=== PATIENT | male | born 1970 | race African-American/Black ===

== ENCOUNTER 2022-01-01 22:37 | Observation (INO) ==
--- NOTE | 2022-01-01 22:58 | Emergency Department Note ---
Impression & Plan Stroke-like episode ADMIT ED Provider Note HPI: The patient is a 51-year-old male who presents from [facility] with chief complaint of left upper extremity weakness and numbness. Patient states this began 3 hours prior to arrival. On arrival here to the ED the patient complains of some left upper extremity and left lower extremity weakness, also complains of numbness and tingling in his left upper extremity. Facial movements are symmetrical, he otherwise does not have any focal deficits. Patient denies any chest pain or shortness of breath, denies any visual changes, denies any headache. Patient is alert and oriented on arrival. ROS: -Neuro: Left-sided weakness, paresthesias of the left upper extremity *10 point review systems was conducted and is otherwise negative unless stated above *Outpatient medications and allergy history reviewed PE: General: Alert, NAD HEENT: Normocephalic, atraumatic Eyes: Extraocular eye movement is intact, no scleral erythema Pulmonary: Clear to auscultation bilaterally, no wheezing Cardio: Regular rate and rhythm GI: Abdomen is soft, nontender : No suprapubic tenderness MSK: No evidence of trauma or malformation of the extremities, no edema Skin: No evidence of rash Neuro: Alert, no focal deficits, there is mild drift of the left upper and left lower extremity with testing against gravity, symmetrical facial movements are appreciated, there is no drift of the right upper extremity or right lower extremity with testing against gravity Psychiatric: Cooperative traffic monitor specialist: - An order was placed for continuous cardiac monitoring - Patient was noted to be in sinus rhythm with rate of 62 CT HEAD: No acute infarct, bleed, or acute intracranial abnormality. Mild cortical atrophy. Radiologist: Alyssia Lowry M.D. Study ready at 23:12 and initial results transmitted at 23:17 Communications: Clear Time TypeH Notes 01/01/22 23:25 Call Doctor Regarding Str eve, called Dr Rivera on 01/01 23:25 (-04:00) Preliminary Findings Only See Final Report For Complete Findings CTA HEAD: No aneurysm or large vessel occlusion. Results discussed with Dr. Rivera. Radiologist: Alyssia Lowry M.D. Study ready at 23:16 and initial results transmitted at 23:27 Communications: Clear Time Type Notes 01/01/22 23:28 Call Doctor Regarding Str eve, called Dr. Rivera on 01/01 23:28 (- 04:00) CTA NECK: Mild atherosclerosis and ectasia bilateral ICA. Codominant vertebral arteries. No dissection, significant stenosis, or vessel occlusion. Results discussed with Dr. Rivera. Radiologist: Alyssia Lowry M.D. Study ready at 23:17 and initial results transmitted at 23:28 Communications: Clear Time Type Notes 01/01/22 23:31 Call Doctor Regarding Str eve, called Dr. Rivera on 01/01 23:32 (- 04:00) NIH STROKE SCALE: 1A: Level of consciousness Alert; keenly responsive 0 1B: Ask month and age Both questions right 0 1C: 'Blink eyes' & 'squeeze hands' Performs both tasks 0 2: Horizontal extraocular movements Normal 0 3: Visual conley No visual loss 0 4: Facial palsy Normal symmetry 0 5A: Left arm motor drift +1 5B: Right arm motor drift No drift for 10 seconds 0 6A: Left leg motor drift +1 6B: Right leg motor drift No drift for 5 seconds 0 7: Limb Ataxia No ataxia 0 8: Sensation Normal; no sensory loss 1 9: Language/aphasia Normal; no aphasia 0 10: Dysarthria Normal 0 11: Extinction/inattention No abnormality 0 TOTAL NIH SCORE = 2 EKG: Rate: 62 Rhythm: Sinus rhythm Intervals: OR interval prolonged at 220 ms, otherwise within normal limits ST changes: No ST elevation Time: 2248 Medical Decision Making: Patient presented to the emergency department with left-sided weakness and paresthesias in the left upper extremity, he arrives approximately 3 hours after the onset of his symptoms therefore stroke alert was called following my evaluation of the patient in the room. I did contact the on-call stroke neurologist at [facility], Dr. Merchant, also evaluate the patient via tele- stroke consult. Patient does have an NIH score of 3 for left upper extremity and left lower extremity drift as well as abnormal sensory deficit in the left upper extremities with paresthesias and numbness/tingling. CT imaging of the head without contrast is unremarkable, CT angiography of the head and neck does not show any evidence of large vessel occlusion or aneurysm. Following my discussion with Dr. Merchant after his telestroke consult, patient was determined to be a candidate for TNK. At this point the patient is still within a 4.5-hour window, I did discuss the possibility of administering TN K with the patient, he tells me he is starting to feel some improvement in his left-sided weakness and he is not comfortable with a 5 to 7% risk of intracranial hemorrhage with the me dicine, therefore he does not want the medicine to be administered. I think this is reasonable given that his symptoms are improving. Patient was given aspirin in the ED, his lab work is otherwise unremarkable, he denies any chest pain or shortness of breath, patient will be admitted to the hospitalist service for further management and MRI of the brain. Case was discussed with Dr. Olmedo of [facility] for admission. * CRITICAL CARE TIME: 35 min -Stroke alert activation for patient with focal deficits inside the window for thrombolysis, discussion with other healthcare providers/specialty physicians/stroke neurology, interpretation of diagnostic studies, time spent at the bedside and arrangement of admission Diagnosis: 1. Strokelike episode 2. Left-sided weakness 3. Left-sided paresthesias 4. History of hypertension 5. History of hyperlipidemia Disposition: Admission Clive Rivera DO Emergency Medicine Past Med/Surg History Social History Smoking Status: Never smoker Feels Safe at Home: Yes Allergies Allergies Allergy/AdvReac Type Severity Reaction Status Date / Time No Known Allergies Allergy Unverified 01/01/22 23:52 Home Meds Home Medications Medication Instructions Recorded Confirmed amlodipine 10 mg tablet 10 mg PO DAILY 01/01/22 01/01/22 aspirin 81 mg tablet,delayed 81 mg PO DAILY 01/01/22 01/01/22 release atorvastatin 20 mg tablet 20 mg PO HS 01/01/22 01/01/22 hydrochlorothiazide 25 mg tablet 25 mg PO DAILY 01/01/22 01/01/22 Results & Data (ED) Vital Signs Vital Signs - 24 hr 01/01/22 22:40 01/01/22 22:46 01/01/22 23:10 Pulse Rate 65 Pulse Rate [Finger] 63 Respiratory Rate 18 18 Respiratory Effort / Characteristics Non-Labored Spontaneous Respiratory Depth Normal Respiratory Pattern Regular Blood Pressure 140/91 Blood Pressure [Right Arm] 152/87 H Blood Pressure Mean 107 Blood Pressure Mean [Right Arm] 108 Blood Pressure Position Sitting Pulse Oximetry 98 98 100 Oxygen Delivery Method Room Air Room Air Room Air Sepsis Recent Fever Within 48 Hours No Sepsis New/Unexplained Change in Mental Status N/A Sepsis Action Taken by Nursing No Action Required 01/01/22 23:30 01/01/22 23:45 01/02/22 00:00 Pulse Rate Pulse Rate [Finger] 67 67 72 Respiratory Rate 20 20 18 Respiratory Effort / Characteristics Respiratory Depth Respiratory Pattern Blood Pressure Blood Pressure [Right Arm] 130/84 139/86 157/100 H Blood Pressure Mean Blood Pressure Mean [Right Arm] 99 103 119 Blood Pressure Position Pulse Oximetry 100 99 99 Oxygen Delivery Method Room Air Room Air Room Air Sepsis Recent Fever Within 48 Hours Sepsis New/Unexplained Change in Mental Status Sepsis Action Taken by Nursing 01/02/22 00:15 Pulse Rate Pulse Rate [Finger] 67 Respiratory Rate 16 Respiratory Effort / Characteristics Respiratory Depth Respiratory Pattern Blood Pressure Blood Pressure [Right Arm] 155/100 H Blood Pressure Mean Blood Pressure Mean [Right Arm] 118 Blood Pressure Position Pulse Oximetry 99 Oxygen Delivery Method Room Air Sepsis Recent Fever Within 48 Hours Sepsis New/Unexplained Change in Mental Status Sepsis Action Taken by Nursing Laboratory Data Result diagrams: 01/01/22 22:44 01/01/22 22:44 Lab Results 01/01/22 01/01/22 01/01/22 Range/Units 22:43 22:44 22:44 WBC 7.64 (4.8-10.8) K/uL RBC 4.57 L (4.7-6.1) M/uL Hgb 14.5 (14.0-18.0) g/dL Hct 41.8 L (42-52) % MCV 91.5 (80-100) fL MCH 31.7 (25-34) pg MCHC 34.7 (32-36) g/dL RDW Std Deviation 43.5 (36.4-46.3) fL RDW Coeff of [place] 13.0 (11.5-14.5) % Plt Count 252 (130-400) K/uL MPV 10.7 H (7.4-10.4) fL Immature Gran % (Auto) 0.3 % Neut % (Auto) 47.6 % Lymph % (Auto) 39.5 % [place] % (Auto) 11.0 % Eos % (Auto) 1.3 % Baso % (Auto) 0.3 % Neut # (Auto) 3.64 (1.4-6.5) K/uL Lymph # (Auto) 3.02 (1.2-3.4) K/uL [place] # (Auto) 0.84 H (0.11-0.59) K/uL Eos # (Auto) 0.10 (0-0.5) K/uL Baso # (Auto) 0.02 (0-0.2) K/uL Immature Gran # (Auto) 0.02 (0.00-0.02) K/uL PT 10.7 (9.0-12.0) Seconds INR 1.0 (0.9-1.1) APTT 26.6 (21.0-31.0) Seconds PTT Ratio 1.0 Sodium (136-145) mmol/L Potassium Chloride (98-107) mmol/L Carbon Dioxide (21-32) mmol/L Anion Gap (3-11) BUN (6-23) mg/dl Creatinine (0.6-1.4) mg/dl Est Cr Clr Drug Dosing ml/min Est GFR ( Amer) ml/min Est GFR (Non-Af Amer) ml/min BUN/Creatinine Ratio (10-20) Glucose (70-99(Fasting)) mg/dl POC Glucose 110 H (70-99) mg/dl Calcium (8.5-10.1) mg/dl Magnesium (1.7-2.4) mg/dl Total Bilirubin (0.2-1.0) mg/dl AST ALT (7-52) U/L Alkaline Phosphatase (34-104) U/L Troponin I High Sens Total Protein (6.0-8.3) gm/dl Albumin (3.4-5.0) gm/dl Globulin (2.5-4.0) gm/dl Albumin/Globulin Ratio (0.9-2) SARS-CoV-2, RNA, NAAT (NEGATIVE) 01/01/22 01/01/22 01/01/22 Range/Units 22:44 22:47 23:55 WBC (4.8-10.8) K/uL RBC (4.7-6.1) M/uL Hgb (14.0-18.0) g/dL Hct (42-52) % MCV (80-100) fL MCH (25-34) pg MCHC (32-36) g/dL RDW Std Deviation (36.4-46.3) fL RDW Coeff of [place] (11.5-14.5) % Plt Count (130-400) K/uL MPV (7.4-10.4) fL Immature Gran % (Auto) % Neut % (Auto) % Lymph % (Auto) % [place] % (Auto) % Eos % (Auto) % Baso % (Auto) % Neut # (Auto) (1.4-6.5) K/uL Lymph # (Auto) (1.2-3.4) K/uL [place] # (Auto) (0.11-0.59) K/uL Eos # (Auto) (0-0.5) K/uL Baso # (Auto) (0-0.2) K/uL Immature Gran # (Auto) (0.00-0.02) K/uL PT (9.0-12.0) Seconds INR (0.9-1.1) APTT (21.0-31.0) Seconds PTT Ratio Sodium 139 (136-145) mmol/L Potassium TNP Chloride 103 (98-107) mmol/L Carbon Dioxide 28 (21-32) mmol/L Anion Gap 8 (3-11) BUN 13 (6-23) mg/dl Creatinine 1.52 H (0.6-1.4) mg/dl Est Cr Clr Drug Dosing 74.1 ml/min Est GFR ( Amer) 60.2 ml/min Est GFR (Non-Af Amer) 51.9 ml/min BUN/Creatinine Ratio 8.6 L (10-20) Glucose 94 (70-99(Fasting)) mg/dl POC Glucose (70-99) mg/dl Calcium 9.2 (8.5-10.1) mg/dl Magnesium 2.0 (1.7-2.4) mg/dl Total Bilirubin 0.4 (0.2-1.0) mg/dl AST TNP ALT 27 (7-52) U/L Alkaline Phosphatase 65 (34-104) U/L Troponin I High Sens Cancelled 5.0 Total Protein 7.3 (6.0-8.3) gm/dl Albumin 4.5 (3.4-5.0) gm/dl Globulin 2.8 (2.5-4.0) gm/dl Albumin/Globulin Ratio 1.6 (0.9-2) SARS-CoV-2, RNA, NAAT NEGATIVE (NEGATIVE) Administered Medications Discontinued Medications Aspirin (Aspirin Chew 324 Mg) 324 mg PO NOW STA Stop: 01/01/22 23:54 Last Admin: 01/01/22 23:58 Dose: 324 mg Documented by: [id number] Tenecteplase 25 mg/ Syringe 5 mls @ 60 mls/min IV NOW ONE; Protocol Stop: 01/01/22 23:47 Last Admin: 01/01/22 23:48 Dose: Not Given Documented by: [id number] Ioversol (Optiray 320 125ml) 117 ml IV ONCE ONE Stop: 01/01/22 23:12 Last Admin: 01/01/22 23:12 Dose: 117 ml Documented by: [id number] Miscellaneous (Stat Iv) 1 ea N/A NOW STA Stop: 01/01/22 23:37 Last Admin: 01/01/22 23:49 Dose: Not Given Documented by: [id number] Sodium Chloride (Sodium Chloride 0.9% 10ml Flush) 20 ml IV NOW STA Stop: 01/01/22 23:37 Last Admin: 01/01/22 23:49 Dose: Not Given Documented by: [id number] Discharge Plan Visit Data Chief Complaint: Stroke/CVA Symptoms Stated Complaint: Back Pain, Stroke Symptoms ED Provider: Clive Rivera Discharge Problem: Stroke-like episode Forms Stand Alone Forms: My [facility] Prescriptions Prescriptions: No Action atorvastatin 20 mg Tablet 20 mg PO HS RF: 0 aspirin [Aspir-Low] 81 mg Tablet,Delayed Release (Dr/Ec) 81 mg PO DAILY RF: 0 amlodipine 10 mg Tablet 10 mg PO DAILY RF: 0 hydrochlorothiazide 25 mg Tablet 25 mg PO DAILY RF: 0 Referrals Referrals: PCP,NO [Physician] -
[2022-01-01] MEDS ORDERED: OPTIRAY 320 125ml IV ONE (23:11)
[2022-01-01 23:27] LABS: Basophils # (auto) 0.02 K/uL (0-0.2); Basophils % (auto) 0.3 %; Eosinophils % (auto) 1.3 %; Hematocrit (blood only) 41.8 % (42-52); Hemoglobin 14.5 g/dL (14.0-18.0); Immature Granulocytes # (auto) 0.02 K/uL (0.00-0.02); Immature Granulocytes % (auto) 0.3 %; Lymphocytes # (auto) 3.02 K/uL (1.2-3.4); Lymphocytes % (auto) 39.5 %; Mean Corpuscular Hemoglobin 31.7 pg (25-34); Mean Corpuscular Hgb Conc 34.7 g/dL (32-36); Mean Corpuscular Volume 91.5 fL (80-100); Mean Platelet Volume 10.7 fL (7.4-10.4); Monocytes # (auto) 0.84 K/uL (0.11-0.59); Neutrophils # (auto) 3.64 K/uL (1.4-6.5); Neutrophils % (auto) 47.6 %; Platelet Count 252 K/uL (130-400); RDW Standard Deviation 43.5 fL (36.4-46.3); Red Blood Count 4.57 M/uL (4.7-6.1); White Blood Count 7.64 K/uL (4.8-10.8)
[2022-01-01 23:33] LABS: Partial Thromboplastin Time 26.6 Seconds (21.0-31.0); Prothrombin Time 10.7 Seconds (9.0-12.0)
[2022-01-01] MEDS ORDERED: STAT IV STA (23:36)
[2022-01-01] MEDS ORDERED: SODIUM CHLORIDE 0.9% 10ML FLUSH IV STA (23:36)
[2022-01-01] MEDS ORDERED: No Aspirin within 24hrs of THROMBOLYTIC-Stroke PO SCH (23:45)
[2022-01-01] MEDS ORDERED: TENECTEPLASE 25 MG in SYRINGE 0 ML IV ONE (23:46)
[2022-01-01] MEDS ORDERED: ASPIRIN CHEW 324 MG PO STA (23:53)
[2022-01-02 00:13] LABS: Alanine Aminotransferase 27 U/L (7-52); Albumin Globulin Ratio 1.6 (0.9-2); Albumin Level 4.5 gm/dl (3.4-5.0); Alkaline Phosphatase 65 U/L (34-104); Anion Gap 8 (3-11); BUN Creatinine Ratio 8.6 (10-20); Bilirubin,Total 0.4 mg/dl (0.2-1.0); Blood Urea Nitrogen 13 mg/dl (6-23); Calcium 9.2 mg/dl (8.5-10.1); Carbon Dioxide 28 mmol/L (21-32); Chloride 103 mmol/L (98-107); Creatinine Clr Calc Pharmacy 74.1 ml/min; Est GFR (African American) 60.2 ml/min; Est GFR (Non-African American) 51.9 ml/min; Globulin 2.8 gm/dl (2.5-4.0); Glucose 94 mg/dl (70-99(Fasting)); Sodium 139 mmol/L (136-145); Total Protein 7.3 gm/dl (6.0-8.3)
[2022-01-02] MEDS ORDERED: CLOPIDOGREL BISULFATE 75 MG TAB PO STA (00:41)
--- NOTE | 2022-01-02 00:42 | History & Physical Report ---
Date of Service January 02, 2022 Assessment & Plan (1) CVA (cerebral vascular accident): Plan: 51 y/o M Hx HTN, HLD, CKD III. He developed symptoms of L weakness and numbness, primarily in his L arm and less so in his L leg, 2-3 hours prior to arrival in the ER. He was evaluated by the telestroke service and TPA was advised. However, the pt has declined based on bleeding risk. Initial imaging including CTA head, neck and CT head did not demonstrate any acute abnor malities. Labs were unremarkable. 1) CVA - monitor on telemetry with neuro checks. He takes ASA and 20mg atorvastatin. He is provided with Plavix and 80mg statin. MRI and neurology consult pending. 2) HTN - HCTZ and amlodipine held in setting of acute CVA. 3) HLD - high-intensity statin dosing 4) CKD - renal function at baseline Full code Lovenox prophylaxis Total time for this admit including review of labs, meds, imaging, records - 38 min (2) HTN (hypertension): (3) HLD (hyperlipidemia): History of Present Illness Chief Complaint: L weakness/numbness Primary Care Provider: MARY Shi 51 y/o M Hx HTN, HLD, CKD III. He developed symptoms of L weakness and numbness, primarily in his L arm and less so in his L leg, 2-3 hours prior to arrival in the ER. He was evaluated by the telestroke service and TPA was advised. However, the pt has declined based on bleeding risk. Initial imaging including CTA head, neck and CT head did not demonstrate any acute abnormalities. Labs were unremarkable. PMH: 1) HTN 2) HLD 3) CKD III Surgical: L5, S1 surgery Social: Resident of a local [facility]. Does not drink or smoke. Formerly a construction foreman. Family: Mother - gastric CA Father - MVA Allergies Allergy/AdvReac Type Severity Reaction Status Date / Time No Known Allergies Allergy Unverified 01/01/22 23:52 Home Medications Medication Instructions Recorded Confirmed Type amlodipine 10 mg tablet 10 mg PO DAILY 01/01/22 01/01/22 History aspirin 81 mg tablet,delayed 81 mg PO DAILY 01/01/22 01/01/22 History release atorvastatin 20 mg tablet 20 mg PO HS 07/01/22 07/01/22 History hydrochlorothiazide 25 mg tablet 25 mg PO DAILY 01/01/22 01/01/22 History Past Med/Surg History Social History Smoking Status: Never smoker Feels Safe at Home: Yes Review of Systems Review of Systems: Gen: Denies fevers, night sweats, rigors, fatigue, malaise, weight loss/gain ENT: Denies congestion, throat pain, hearing loss Eyes: Denies acute visual changes CV: Denies CP, palpitations Pulmonary: Denies SOB, cough, wheezing GI: Denies N/V, diarrhea, constipation Neuro: Acute L extremity weakness Musculoskeletal: Denies joint pain, inflammation Endocrine: Denies polydipsia, polyuria Skin: Denies acute rashes or ulcers Physical Exam Physical Exam: General: Pleasant, middle-aged M, AAO x 3, no distress ENT: No erythema or exudates, no thrush Eyes: VENKATA, EOMI Head and neck: Normocephalic, atraumatic, No JVD, neck is supple. Chest/heart: Nontender, S1,2, RRR, no murmurs, no gallops Lungs: CTAB, no wheezing or crackles Abdomen: Nontender, nondistended, BS+ Neuro: AAO x 3, speech is clear, no facial asymmetry, L upper extremity drift and distal numbness present. LLE displays lesser degree of weakness. Musculoskeletal: No joint inflammation, muscle tenderness, FROM Skin: No acute rashes or ulcers Extremities: No clubbing, cyanosis, edema Results & Data Results & Data ([facility]) Vital Signs (Past 12 Hours) Vital Signs Pulse Pulse Resp BP BP Pulse Ox 01/02/22 00:30 62 16 135/91 98 01/02/22 00:15 67 16 155/100 H 99 01/02/22 00:00 72 18 157/100 H 99 01/01/22 23:45 67 20 139/86 99 01/01/22 23:30 67 20 130/84 100 01/01/22 23:10 63 18 152/87 H 100 01/01/22 22:46 98 01/01/22 22:40 65 18 140/91 98 Code Status & VTE Plan VTE Prophylaxis Plan VTE Prophylaxis will be ordered: Yes PG Care Time/CCT Total # of Minutes Spent Total Time Spent with Patient: Total time spent is greater than 50% in coordination of care (as documented) at patient's floor/unit and/or counseling patient: Coding Level of Care Code 74566 Initial Inpt Care Lvl 3 Diagnoses CVA (cerebral vascular accident) I63.9 HTN (hypertension) I10 HLD (hyperlipidemia) E78.5
[2022-01-02] MEDS ORDERED: ACETAMINOPHEN 325 MG TAB PO PRN (01:26)
[2022-01-02] MEDS ORDERED: D5W AND NSS 1,000 ML IV SCH (01:26)
[2022-01-02 03:26] LABS: Potassium 3.6 mmol/L (3.5-5.1)
[2022-01-02] MEDS: ENOXAPARIN INJ 40 MG/0.4 ML SYR SQ SCH (07:58)
[2022-01-02] MEDS: ASPIRIN 81 MG ECTAB PO SCH (07:58)
[2022-01-02] MEDS: CLOPIDOGREL BISULFATE 75 MG TAB PO SCH (07:58)
--- NOTE | 2022-01-02 08:06 | Hospitalist Progress Note ---
Date of Service January 02, 2022 Assessment & Plan (1) CVA (cerebral vascular accident): Plan: 51 y/o M Hx HTN, HLD, CKD III. He developed symptoms of L weakness and numbness, primarily in his L arm and less so in his L leg, 2-3 hours prior to arrival in the ER. He was evaluated by the telestroke service and TPA was advised. However, the pt has declined based on bleeding risk. Initial imaging including CTA head, neck and CT head did not demonstrate any acute abnor malities. Labs were unremarkable. MRI is completely normal brain such as MRI has ruled out CVA - He is provided with Plavix and 80mg statin. Considerations would likely be atypical migraine as he does have some visual changes associated with it patient is started on Topamax in the evening of 01/02 choosing not to use beta-blockers as he has a low resting heart rate to begin with may consider venlafaxine HTN - HCTZ and amlodipine held in setting of lower blood pressures. HLD - high-intensity statin dosing CKD - renal function at baseline Full code Lovenox prophylaxis PT OT eval #speech bedside swallowing eval (2) HTN (hypertension): (3) HLD (hyperlipidemia): Admission and Anticipated Discharge Date Admission Date: January 02, 2022 Subjective pt states he feels that his symptoms are resolving Review of Systems Review of Systems: Mild distress and fatigue no headache, no visual changes no speech or swallowing issues no chest pain, pressure or palpitations no shortness of breath, cough or wheezes no abdominal pain, nausea or vomiting, diarrhea or constipation no dysuria, hematuria or frequency no focal joint pain or swelling no back pain, CVA tenderness or radicular pain no bruising, bleeding or rashes Patient says his left-sided paresthesias are resolving or improving he has no objective signs of weakness no complaints of anxiety or depression.. Physical Exam Physical Exam: The patient appeared well nourished and normally developed. Vital signs as documented. Head exam is normocephalic atraumatic Neck is without JVD, thyromegaly, or carotid bruits. Lungs are clear to auscultation, no focal loss of breath sounds Cardiac exam, Rhythm is regular.. No murmurs, rubs or gallops. Abdominal exam reveals normal bowel sounds, soft non tender, no masses Extremities are nonedematous and both pedal pulses are present Neurologic exam is alert and oriented, no focal loss of strength or sensation Skin is without bruises or rashes Psychologically is without concerns for anxiety or depression.. Results & Data Results & Data ([facility]) Vital Signs (Past 12 Hours) Vital Signs Temp Pulse Pulse Resp BP BP BP 01/02/22 07:22 97.3 F L 54 L 19 132/83 01/02/22 03:06 98.1 F 55 L 18 131/83 01/02/22 01:19 98.2 F 63 18 155/91 H 01/02/22 00:45 72 18 138/90 01/02/22 00:30 62 16 135/91 01/02/22 00:15 67 16 155/100 H 01/02/22 00:00 72 18 157/100 H 01/01/22 23:45 67 20 139/86 01/01/22 23:30 67 20 130/84 01/01/22 23:10 63 18 152/87 H 01/01/22 22:46 01/01/22 22:40 65 18 140/91 Pulse Ox 01/02/22 07:22 96 01/02/22 03:06 95 01/02/22 01:19 97 01/02/22 00:45 99 01/02/22 00:30 98 01/02/22 00:15 99 01/02/22 00:00 99 01/01/22 23:45 99 01/01/22 23:30 100 01/01/22 23:10 100 01/01/22 22:46 98 01/01/22 22:40 98 PG Care Time/CCT Total # of Minutes Spent Total Time Spent with Patient: Total time spent is greater than 50% in coordination of care (as documented) at patient's floor/unit and/or counseling patient: Coding Level of Care Code 86198 Subseq Hosp Care Lvl 2 Diagnoses CVA (cerebral vascular accident) I63.9 HTN (hypertension) I10 HLD (hyperlipidemia) E78.5
--- NOTE | 2022-01-02 08:11 | CT Scan Report ---
CT angio head w con, CT angio neck with con, CT head/brain wo con CLINICAL HISTORY: Stroke Like Symptoms TECHNIQUE: Contiguous axial CT images of the head were acquired from the base of the skull to the viktor maryjo without intravenous contrast administration. CT angiography of the head and neck was performed f ollowing intravenous administration of iodinated contrast. Coronal and sagittal MIPS were obtained fr om the axial data set and were submitted for review. Automated dose lowering techniques and/or adjus tment according to patient size were utilized for this examination. All measurements were calculated based on NASCET criteria. CT DOSE: 1263.34 mGy.cm Comparison: None available at the time of this dictation. FINDINGS: CT head: There is no acute intracranial hemorrhage or evidence of acute territorial infarction. No sh ift of the midline structures, mass effect, or extra-axial abnormalities are shown. Lungs and soft tissues are unremarkable. CTA Neck: A 3 vessel aortic arch is shown. There is no significant atherosclerotic plaque in the aor tic arch or the origins of the innominate, left common carotid, and left subclavian arteries. The c ommon carotid, external carotid, cervical segments of the internal carotid arteries, and the cervical segments of the vertebral arteries are patent without hemodynamically significant stenosis. The vert ebral arteries are codominant. CTA Head: The anterior and posterior cerebral circulations are patent. No hemodynamically significan t stenosis, aneurysm, dissection, or arteriovenous malformation is shown. origin of the bilater al posterior cerebral arteries noted. IMPRESSION: 1. No acute intracranial hemorrhage, evidence of acute territorial infarction, or other acute intrac ranial disease process. 2. No occlusion, hemodynamically significant stenosis, aneurysm, dissection, or arteriovenous malfor mation in the major intracranial arteries. 3. No occlusion, hemodynamically significant stenosis, or dissection in the major cervical arteries. Assessment of stenosis of the internal carotid arteries is based on NASCET criteria. ACT 112: Negative or not required by law. Electronically signed by: Aftab Cat M.D. 01/02/2022 8:09 AM
--- NOTE | 2022-01-02 08:39 | XRay Report ---
XR chest 1V portable CLINICAL HISTORY: Stroke Like Symptoms COMPARISON STUDY: No previous studies for comparison. FINDINGS: Lung volumes are normal. Lungs are clear. There is no pneumothorax or pleural effusion. Car diac size is normal. Mediastinal contours are normal. There is no evidence for pulmonary edema. IMPRESSION: No acute cardiopulmonary findings. ACT 112: Negative or not required by law. Electronically signed by: Eris Goetz M.D. 01/02/2022 8:38 AM
[2022-01-02] MEDS ORDERED: ASPIRIN 81 MG ECTAB PO SCH (09:00)
[2022-01-02 10:10] LABS: Lyme Ab IgG w/WB Rflx Negative (Negative); Lyme Ab IgM w/WB Rflx Negative (Negative)
--- NOTE | 2022-01-02 10:48 | Magnetic Resonance Report ---
MR brain wo con CLINICAL HISTORY: cva TECHNIQUE: Multiplanar and multisequence MR images of the brain were obtained without intravenous con trast. Comparison: None available at the time of this dictation. FINDINGS: No abnormal restricted diffusion is identified. A view punctate white matter foci are seen which are favored to represent chronic small vessels disease. The ventricular system is normal in appearance. N o mass is seen. There is no mass effect or midline shift. There is no evidence of acute intraparenchy mal hemorrhage. No extra axial fluid collections are seen. The corpus callosum, pituitary gland, and cerebellar tonsils appear grossly unremarkable. Flow voids of the major intracranial arterial vessels are identified. The imaged portions of the para nasal sinuses, mastoid air cells, and orbits are unremarkable. IMPRESSION: No acute abnormalities. ACT 112: Negative or not required by law. Electronically signed by: Aftab Cat M.D. 01/02/2022 10:46 AM
[2022-01-02] MEDS ORDERED: TOPIRAMATE 25 MG TAB PO SCH (21:00)
[2022-01-02] MEDS ORDERED: ATORVASTATIN 40 MG TAB PO SCH (21:00)
[2022-01-03] MEDS: ASPIRIN 81 MG ECTAB PO SCH (08:59)
[2022-01-03] MEDS: ENOXAPARIN INJ 40 MG/0.4 ML SYR SQ SCH (08:59)
[2022-01-03] MEDS: CLOPIDOGREL BISULFATE 75 MG TAB PO SCH (08:59)
--- NOTE | 2022-01-03 13:15 | Discharge Summary ---
Date of Service January 03, 2022 Admission HPI Per Admitting Provider 51 y/o M Hx HTN, HLD, CKD III. He developed symptoms of L weakness and numbness, primarily in his L arm and less so in his L leg, 2-3 hours prior to arrival in the ER. He was evaluated by the telestroke service and TPA was advised. However, the pt has declined based on bleeding risk. Initial imaging including CTA head, neck and CT head did not demonstrate any acute abnormalities. Labs were unremarkable. PMH: 1) HTN 2) HLD 3) CKD III Surgical: L5, S1 surgery Social: Resident of [facility]. Does not drink or smoke. Formerly a on site construction superintendent. Family: Mother - gastric CA Father - MVA Principal Diagnosis atypical migraine - cva ruled out Discharge Exam The patient appeared stable Vital signs as documented. Lungs are clear to auscultation and appear unlabored Cardiac exam, Rhythm is regular.. No murmurs, rubs or gallops. Abdominal exam reveals normal bowel sounds, soft non tender, no masses Extremities are nonedematous and both pedal pulses are normal. Neurologic exam is alert and oriented, no focal loss of strength or sensation, subjective paraesthesias are not reproduced objectivley Skin is without bruises or rashes Psychologically is without concerns for anxiety or depression. Discharge Data Allergies Allergy/AdvReac Type Severity Reaction Status Date / Time No Known Allergies Allergy Unverified 01/01/22 23:52 Consultations 01/02/22 00:22 ED Decision to Admit Stat Ordered Studies 01/01/22 22:57 CT angio head w con Urgent CT angio neck with con Urgent CT head/brain wo con Urgent 01/02/22 00:44 MR brain wo con Routine Hospital Course (1) CVA (cerebral vascular accident): 51 y/o M Hx HTN, HLD, CKD III. He developed symptoms of L weakness and numbness, primarily in his L arm and less so in his L leg, 2-3 hours prior to arrival in the ER. He was evaluated by the telestroke service and TPA was advised. However, the pt has declined based on bleeding risk. Initial imaging including CTA head, neck and CT head did not demonstrate any acute abno rmalities. Labs were unremarkable. MRI is completely normal brain such as MRI has ruled out CVA - He is provided with Plavix and 80mg statin. Considerations would likely be atypical migraine as he does have some visual changes associated with it patient is started on Topamax in the evening of 01/02 choosing not to use beta-blockers as he has a low resting heart rate to begin with. consider 2 week trial and stop, if unable to tolerate this may consider venlafaxine HTN - HCTZ and amlodipine held in setting of lower blood pressures. HLD - high-intensity statin dosing CKD - renal function at baseline Full code (2) HTN (hypertension): (3) HLD (hyperlipidemia): Total Time Total Time Spent Total Time Spent (In Minutes): It required greater than 30 minutes to prepare this patient for discharge Discharge Plan Discharge Items [facility] Reason For Visit: CVA Discharge Diagnosis: atypical migraine, stoke is ruled out Activity: Per Instructions section Activity Comment: per your facility recommendation Non-emergency contact: Primary Care Provider Call non-emergency contact if: your symptoms worsen Follow-up/Referrals: Aleida Shi [Primary Care Provider] - Diet: Regular Addtl Attending Provider Instructions: You did not have a stroke, you may have been suffering from a non typial migraine headache, sometimes this is neurologic symptoms without the head pain, we are trying you on a medicine to help reduce your symptoms. Pending Studies at Discharge: No Stand-Alone Forms: My [facility] Skilled Items Patient informed of condition?: Yes Discharge Level of Care: Other Communicable Disease: No Discharge Prognosis: Stable Lines: None Urinary Catheter: No Medications and DC Order Prescriptions: New topiramate 25 mg Tablet 25 mg PO QPM Qty: 14 RF: 0 Continued atorvastatin 20 mg Tablet 20 mg PO HS RF: 0 aspirin 81 mg Tablet,Delayed Release (Dr/Ec) 81 mg PO DAILY RF: 0 Discontinued amlodipine 10 mg Tablet 10 mg PO DAILY RF: 0 hydrochlorothiazide 25 mg Tablet 25 mg PO DAILY RF: 0 Discharge Orders: Discharge Order (Routine); Ordered 01/03/22 Ordered By: Tong Polo Admission Data Admit Date/Time: 01/02/22 00:35 Attending Provider: Tong Polo Admit Provider: Adal Olmedo Primary Care Provider: Aleida Shi Other Providers: Adal Olmedo Other Interventions: Discharge Summary Assessment (RN) Last Done: 07/03/22 12:42 Coding Level of Care Code D/C DAY MANAGEMENT >30 MINS Diagnoses CVA (cerebral vascular accident) I63.9 HTN (hypertension) I10 HLD (hyperlipidemia) E78.5
--- NOTE | 2022-01-04 09:16 | Electrocardiogram Report ---
Test Reason : Blood Pressure : / mmHG Vent. Rate : 062 BPM Atrial Rate : 062 BPM P-R Int : 228 ms QRS Dur : 096 ms QT Int : 382 ms P-R-T Axes : 067 078 069 degrees QTc Int : 387 ms Sinus rhythm with 1st degree A-V block Otherwise normal ECG No previous ECGs available Confirmed by Bishnu Choudhury ([id number]) on 01/04/2022 9:16:06 AM Referred By: Yuridia HERNANDEZ Confirmed By:Bishnu Choudhury
== END 2022-01-03 14:23 | DRG 103 ==
LOC: ED 22:37 → INTOOBSV 01-02 00:35 → 2S 01-02 00:35 → SUATTDRO 01-02 00:35 → 2S 01-02 01:27